=== PATIENT | male | born 1985 | race Caucasian/White ===

== ENCOUNTER 2018-08-28 08:35 | Emergency (ER) | payer MEDICARE, MEDICAID ==
--- NOTE | 2018-08-28 09:36 | EDM.PDOC ---
ED HPI GENERAL MEDICAL PROBLEM - General Chief Complaint: Gastrointestinal Problem Stated Complaint: VOMITING Time Seen by Provider: 08/28/18 09:22 Source of Information: Reports: Patient, Family History Limitations: Reports: No Limitations - History of Present Illness INITIAL COMMENTS - FREE TEXT/NARRATIVE: 33-year-old male with cerebral palsy up in the area hunting for the weekend. This morning when he woke up he had an emesis that looked dark and possibly bloody or coffee-ground. He has no symptoms, he does get nosebleeds at night when he snores and there is dried air but he doesn't remember a nosebleed. He has no dark stools, he has no symptoms currently such as nausea or vomiting. He feels fine and wants to go hunting. Onset: Sudden Associated Symptoms: Reports: Nausea/Vomiting (One emesis this morning, no nausea at this time). Denies: Chest Pain, Malaise, Shortness of Breath - Related Data Allergies Allergy/AdvReac Type Severity Reaction Status Date / Time sulfasalazine Allergy Rash Verified 08/28/18 09:12 Home Meds: Home Meds Ascorbate Calcium [Vitamin C] 500 mg PO DAILY 08/28/18 [History] Atenolol 100 mg PO DAILY 08/28/18 [History] Calcium Polycarbophil [Fibercon] 1,250 mg PO DAILY 08/28/18 [History] Cranberry 500 mg PO DAILY 08/28/18 [History] Doxazosin [Doxazosin Mesylate] 4 mg PO BID 08/28/18 [History] Dronabinol 5 mg PO BID 08/28/18 [History] Fexofenadine [Steph] 180 mg PO DAILY 08/28/18 [History] LORazepam [Ativan] 0.5 mg PO BID 08/28/18 [History] Lactobacillus Rhamnosus GG [Culturelle] 1 cap PO DAILY 08/28/18 [History] Multivitamin [Multi-Vitamin Daily] 1 tab PO DAILY 08/28/18 [History] Tolterodine [Detrol] 2 mg PO BID 08/28/18 [History] Past Medical History HEENT History: Reports: Impaired Vision Musculoskeletal History: Reports: Other (See Below) Other Musculoskeletal History: cerebral palsy Neurological History: Reports: Cerebral Palsy - Past Surgical History Musculoskeletal Surgical History: Reports: Other (See Below) Other Musculoskeletal Surgeries/Procedures:: hip and back surgeries Social & Family History - Tobacco Use Smoking Status *Q: Never Smoker - Caffeine Use Caffeine Use: Reports: Coffee, Soda, Tea - Recreational Drug Use Recreational Drug Use: No ED ROS GENERAL - Review of Systems Review Of Systems: See Below Constitutional: Denies: Fever, Chills, Decreased Appetite HEENT: Reports: Other (Frequent nosebleeds, none recently) Respiratory: Denies: Shortness of Breath Cardiovascular: Denies: Chest Pain GI/Abdominal: Denies: Abdominal Pain Skin: Reports: No Symptoms Neurological: Reports: Other (Cerebral palsy with chronic symptoms, stable) ED EXAM, GI/ABD - Physical Exam Exam: See Below Exam Limited By: No Limitations General Appearance: Alert, No Apparent Distress Respiratory/Chest: Lungs Clear Cardiovascular: Regular Rate, Rhythm GI/Abdominal Exam: Normal Bowel Sounds, Soft, Non-Tender Neurological: Alert, Oriented Course - Vital Signs Last Recorded V/S: Last Vital Signs Temp 98.1 F 08/28/18 10:09 Pulse 117 H 08/28/18 10:09 Resp 18 08/28/18 10:09 BP 154/80 H 08/28/18 10:09 Pulse Ox 95 08/28/18 10:09 - Orders/Labs/Meds Labs: Laboratory Tests 08/28/18 Range/Units 09:31 WBC 11.8 H (4.5-11.0) K/uL RBC 4.84 (4.30-5.90) M/uL Hgb 14.7 (12.0-15.0) g/dL Hct 43.1 (40.0-54.0) % MCV 89 (80-98) fL MCH 30 (27-31) pg MCHC 34 (32-36) % Plt Count 176 (150-400) K/uL Neut % (Auto) 80 H (36-66) % Lymph % (Auto) 9 L (24-44) % [place] % (Auto) 11 H (2-6) % Eos % (Auto) 0 L (2-4) % Baso % (Auto) 0 (0-1) % Meds: Medications Discontinued Medications Generic Name Dose Route Start Last Admin Trade Name Freq PRN Reason Stop Dose Admin Pantoprazole Sodium 40 mg 08/29/18 09:31 08/28/18 09:47 Protonix PO 08/29/18 09:32 40 mg ONETIME ONE Administration - Re-Assessments/Exams Free Text/Narrative Re-Assessment/Exam: 08/28/18 09:34 A baseline CBC was drawn and the patient was given 40 mg of by mouth Protonix. He doesn't present acute enough to require hospitalization at this time, but if he develops maroon stools, more symptoms, or the nausea and emesis his recurring he should return. Daily omeprazole until recheck when home would be reasonable. 08/28/18 09:56 Hemoglobin is normal, patient had no more symptoms. I recommended 20 mg of omeprazole daily until his recheck next week, and he can return if symptoms recur. A copy of his CBC was given to the patient for recheck. Departure - Departure Time of Disposition: 10:10 Disposition: Home, Self-Care 01 Condition: Good Clinical Impression: Hematemesis without nausea - Discharge Information Instructions: Nausea and Vomiting, Adult, [id number] Referrals: PCP,None [Primary Care Provider] - Forms: ED Department Discharge Care Plan Goals: Consider 20 mg of omeprazole daily starting tomorrow, and recheck when home to follow up your hemoglobin level. Return anytime if worsening, and especially get rechecked if symptoms recur, he developed lightheaded numbness, or your stools become dark.
[2018-08-29] MEDS ORDERED: Pantoprazole 40 MG Tab.CR PO ONE (09:31)
== END 2018-08-28 10:11 | disposition home or self-care (01) ==
LOC: JP.ED 08:35
DX: R11.11 Vomiting without nausea (principal); Z79.899 Other long term (current) drug therapy; Z88.2 Allergy status to sulfonamides
CPT/HCPCS: 36415; 85025; 99284; A9270; 99282